=== PATIENT | female | born 1980 | race Caucasian/White ===

== ENCOUNTER 2018-02-05 17:26 | Inpatient (IN) | payer MEDICARE, OTHER ==
--- NOTE | 2018-02-05 21:18 | NUR ---
02/05/182117 Yelena Barton 4199-PATIENT ARRIVED TO PACU ON RA 02 SAT 96% PATIENT AWAKE DENIES PAIN OR NAUSEA. SHAKYNESS. RR EVEN, SPINAL LEVEL AT T10. SR. DRESSING CDI. AT BEDSIDE. BABY WITH [facility] RN IN NURSERY.
--- NOTE | 2018-02-06 07:56 | PR ---
[facility] [address] [facility] [facility] [place], [place] [address] Signed PP Progress Notes Datetime Report Generated by CPN: 02/06/2018 07:56 SUBJECTIVE: [id number] Pain: Within normal limits Nausea/Vomiting: Denies Vital Signs: [id number] Vital Signs: Reviewed; Within Normal Limits Notable Details: UO marginal, concentrated EXAM: [id number] Cardiovascular: Not Done Respiratory: Not Done Abdomen/Uterus: Abnormal Lochia: Normal Vulva/Perineum: Not Done Breasts: Not Done CVA Tenderness: Not Done Extremities: Abnormal Incision: Normal Progress: Abnormal Exam Comments: Abdomen has active BS. Fundus firm, NT @ U. 2+ LE edema 10.9/31.9, WBC 10.5, plat 174k IMPRESSION/PLAN/PROCEDURES: [id number] Impression: Normal progression; difficulties Other Plans: Fluid bolus, increase ambulation, begin pumping Progress Notes: Doing well though UO marginal and still appears very concentrated. Signing Physician: Selene Diaz MD Copies: ~ *Electronically Signed* 02/06/18 0756 SELENE DIAZ MD PATIENT NAME: CARLYN CERVANTES PROGRESS NOTE DATE OF : 84 PHYSICIAN: SELENE DIAZ MD RPT #: [id number] REPORT IS CONFIDENTIAL AND NOT TO BE RELEASED WITHOUT AUTHORIZATION
--- NOTE | 2018-02-07 09:37 | PR ---
[facility] [address] [facility] [place], [place] [address] Signed PP Progress Notes Datetime Report Generated by CPN: 02/07/2018 09:37 SUBJECTIVE: [id number] Pain: Within normal limits Pain Comments: Baby shipped to [facility] last pm but is doing better per pt. Nausea/Vomiting: Denies Flatus: Yes Bowel Movement: Yes Vital Signs: [id number] Vital Signs: Reviewed; Within Normal Limits Notable Details: UO marginal, concentrated EXAM: [id number] Cardiovascular: Normal Respiratory: Normal Abdomen/Uterus: Abnormal Lochia: Normal Vulva/Perineum: Not Done Breasts: Not Done CVA Tenderness: Not Done Extremities: Abnormal Incision: Normal Progress: Abnormal Exam Comments: Abdomen with active BS. Fundus firm, NT @ U-1. Ext with 2+ edema IMPRESSION/PLAN/PROCEDURES: [id number] Impression: Normal progression; difficulties Plan: Discharge Other Plans: Fluid bolus, increase ambulation, begin pumping Procedures: None Progress Notes: Doing well. She can be D/Cd home today to f/u at [facility] with her baby. Signing Physician: Selene Diaz MD Copies: ~ *Electronically Signed* 02/07/18 0937 SELENE DIAZ MD PATIENT NAME: CARLYN CERVANTES PROGRESS NOTE DATE OF : 84 PHYSICIAN: SELENE DIAZ MD RPT #: [id number] REPORT IS CONFIDENTIAL AND NOT TO BE RELEASED WITHOUT AUTHORIZATION
--- NOTE | 2018-02-11 07:53 | OR ---
[facility] [address] [place], [place] [address] Signed DATE OF OPERATION: 02/05/2018 SURGEON: Selene Diaz MD TRANSPORTATION COORDINATOR: Viraj Branch MD. PREOPERATIVE DIAGNOSES: A 36+ week , premature rupture of membranes, LGA infant, and morbid obesity. POSTOPERATIVE DIAGNOSES: A 36+ week , premature rupture of membranes, LGA , morbid obesity, delivered. PROCEDURE PERFORMED: Primary section with low-segment transverse uterine incision. ANESTHESIA: Spinal. ESTIMATED BLOOD LOSS: 750 mL. DRAINS: Gallardo catheter. INDICATIONS AND FINDINGS: The patient is a 37-year-old female, 5, para 1, SAB 3, who was admitted at 36 and 2/7th weeks with spontaneous rupture of membranes. Her has been complicated by transfer care at 34 weeks. She had been receiving care at [facility]. She is also morbidly obese with an excess weight gain. The fundal height was markedly enlarged at approximately 50 cm. Ultrasound was done at the time for admission, which revealed a fetus, which was thought to be at least 10 pounds 13 ounces. She was counseled and the decision was made to proceed with a primary section because of the suspicion that this was indeed very LGA baby. She consented and she was taken to the operating room, where she delivered of a little girl from the ROT position via lower segment transverse uterine incision with Apgars of 8 and 8 and a weight of 11 pounds 9 ounces. The uterus, tubes, ovaries, and placenta appeared normal, though the placenta was very large. Electronically Signed By: SELENE DIAZ MD 02/11/18 0753 PATIENT NAME: CARLYN CERVANTES OPERATIVE REPORT DATE OF : 84 REPORT #: [id number] PHYSICIAN: SELENE DIAZ MD PCP: SELENE DIAZ MD REPORT IS CONFIDENTIAL AND NOT TO BE RELEASED WITHOUT AUTHORIZATION [facility] [address] [place], [place] [address] Signed DESCRIPTION OF PROCEDURE: The patient was prepped and draped in the supine position. A Pfannenstiel skin incision was made and carried down through the subcu with the knife. The cautery was attempted, but it was ineffective due to the massive edema of the abdominal wall. Eventually, the fascia was reached and opened. The incision extended laterally. The inferior and superior fascial flaps were then created. The muscles were bluntly divided and the peritoneum opened sharply and the incision extended superiorly and inferiorly. The Rusty retractor was placed and an incision was made across the lower aspect of the uterus with a knife. The incision was extended bluntly. Following this, an attempt was made to deliver the baby, though the head was very large and it was too large for the incision. A small extension was made on the patient's left side, making it a small J-type incision and this allowed the fetus to be delivered, though still with quite a bit of difficulty. The cord was clamped and the placenta removed manually. The uterus was explored with a lap tape assuring no remaining fragments. The edges of the incision were identified and the small J was closed with few sutures of #0 Monocryl. The remaining incision was closed with a running locking stitch of #0 Monocryl. A second layer was placed using a #0 Monocryl as well and this was placed in a vertical imbricating fashion. Additional [id number] were required at the J area as well as in the midportion for control of bleeding. The bleeding points on the peritoneum were controlled with cautery. The retractor was then removed and the peritoneum identified. The incision was hemostatic and an ACell graft was laid over the lower segment to aid in healing. The peritoneum was then closed with a running suture of #3-0 Vicryl. The muscles were brought together with interrupted sutures of #0 Vicryl. Bleeding points were controlled with cautery. ACell powder was sprinkled over the muscles to aid in healing. The fascia was then closed from each angle to the midline with a running suture of #0 Vicryl. The subcutaneous tissue was very deep given her morbid obesity. It was irrigated and bleeding points controlled. ACell powder was sprinkled into the subcu layer given her obesity. The subcu layer was closed with interrupted sutures of #2-0 and #3-0 Vicryl. The skin was closed with rhonda. All sponge and needle counts were correct. The patient tolerated the procedure well and was taken to the recovery room in good condition. Selene Diaz MD PJW/MODL /[id number] Electronically Signed By: SELENE DIAZ MD 02/11/18 0753 PATIENT NAME: CARLYN CERVANTES OPERATIVE REPORT DATE OF : 84 REPORT #: [id number] PHYSICIAN: SELENE DIAZ MD PCP: SELENE DIAZ MD REPORT IS CONFIDENTIAL AND NOT TO BE RELEASED WITHOUT AUTHORIZATION [facility] [address] [place], [place] [address] Signed cc: Viraj Branch MD Copies: VIRAJ BRANCH MD ~ Electronically Signed By: SELENE DIAZ MD 02/11/18 0753 PATIENT NAME: CARLYN CERVANTES OPERATIVE REPORT DATE OF : 84 REPORT #: [id number] PHYSICIAN: SELENE DIAZ MD PCP: SELENE DIAZ MD REPORT IS CONFIDENTIAL AND NOT TO BE RELEASED WITHOUT AUTHORIZATION
== END 2018-02-07 11:15 | disposition home or self-care (01) | DRG 765 ==
LOC: FBCO 17:26 → FBC 17:52 → MS 02-06 17:57 → FBC 02-06 18:14
PROVIDERS: ADMIT Obstetrics & Gynecology
PROC: 10D00Z1 Extraction of Products of Conception, Low, Open Approach (ICD-10-PCS; principal; 2018-02-05 19:54)
DX: O42.913 Preterm premature rupture of membranes, unspecified as to length of time between rupture and onset of labor, third trimester (principal); O60.14X0 Preterm labor third trimester with preterm delivery third trimester, not applicable or unspecified; Z68.43 Body mass index [BMI] 50.0-59.9, adult; O36.63X0 Maternal care for excessive fetal growth, third trimester, not applicable or unspecified; O32.2XX0 Maternal care for transverse and oblique lie, not applicable or unspecified; O99.214 Obesity complicating childbirth; E66.01 Morbid (severe) obesity due to excess calories; O26.03 Excessive weight gain in pregnancy, third trimester; O99.62 Diseases of the digestive system complicating childbirth; K21.9 Gastro-esophageal reflux disease without esophagitis; Z79.899 Other long term (current) drug therapy; Z3A.36 36 weeks gestation of pregnancy; Z37.0 Single live birth
CPT/HCPCS: 01961; 36415; 76815; 85027; C1763; J0690; J1644; J2175; J2274; J2590; J7030; J7040; J7120